=== PATIENT | female | born 1935 | race Caucasian/White ===

== ENCOUNTER → 2019-05-26 | Outpatient (CLI) | payer MEDICARE ==
[2019-05-26 20:32] LABS: MUCOUS Present /lpf; PH 6 (5-8); SQUAMOUS EPITHELIAL 0-2 /hpf; URINE APPEARANCE Clear; URINE BACTERIA Rare /hpf; URINE BILIRUBIN Negative (NEGATIVE); URINE BLOOD Negative (NEGATIVE); URINE COLOR Straw; URINE GLUCOSE Negative (NEGATIVE); URINE KETONE Negative (NEGATIVE); URINE LEUKOCYTE ESTERASE 1+ (NEGATIVE); URINE NITRATE Negative (NEGATIVE); URINE PROTEIN(semi-quant) Negative (NEGATIVE); URINE RBC 0-2 /hpf; URINE UROBILINOGEN Negative (NEGATIVE)
[2019-05-26 20:50] LABS: COLLECTION METHOD CLEAN CATCH
== END ==
LOC: ZCOL.LAB 15:31
PROVIDERS: Family Medicine
DX: R35.0 Frequency of micturition (principal)

== ENCOUNTER 2019-08-05 07:41 | Inpatient (IN) | payer MEDICARE, BC ==
[~2019-08-05] VITALS: Ht 154.9 cm; Wt 54.2 kg
[2019-08-05 08:11] LABS: HEMOGLOBIN 11.8 g/dl (12.5-16.0); MEAN CELL VOLUME 91 fl (80.0-100.0); MEAN CORPUSCULAR HEMOGLOBIN 30 pg (27.0-31.0); MEAN CORPUSCULAR HGB CONC 33 g/dl (33.0-37.0); MEAN PLATELET VOLUME 9.9 fl (7.4-10.4); PLATELET COUNT 295 K/mm3 (130-400); RED BLOOD COUNT 3.93 M/mm3 (4.10-5.30)
[2019-08-05 08:14] LABS: HEMATOCRIT 35.8 % (37.0-47.0)
[2019-08-05 08:22] LABS: ALANINE AMINOTRANSFERASE 23 U/L (9-52); ALBUMIN 3.9 gm/dL (3.5-5.0); ALKALINE PHOSPHATASE 54 U/L (50-136); ANION GAP 10 mmol/L (7-16); AST,SGOT 20 U/L (15-37); BILIRUBIN,TOTAL 0.5 mg/dL (0.0-1.0); BLOOD UREA NITROGEN 30 mg/dL (7-17); CALCIUM 9.4 mg/dL (8.4-10.2); CARBON DIOXIDE 27 mmol/L (22-30); CHLORIDE 103 mmol/L (98-107); CREATININE, serum 0.96 (0.52-1.25); GLUCOSE 142 mg/dL (74-106); LIPASE 27 U/L (23-300); POTASSIUM 4.4 mmol/L (3.4-5.0); SODIUM 139 mmol/L (137-145); TOTAL PROTEIN 6.5 gm/dL (6.4-8.2)
[2019-08-05 08:24] LABS: C-REACTIVE PROTEIN < 0.5 mg/dL (0.0-0.9)
[2019-08-05] MEDS ORDERED: MELATIN 3 MG-11 TAB PO (08:31)
[2019-08-05] MEDS ORDERED: ATIVAN 0.50.5 MG/TAB PO (08:32)
[2019-08-05] MEDS ORDERED: PREVIDENT5000PLUS DT (08:34)
[2019-08-05] MEDS ORDERED: ZOFRAN ODT4 MG PO (08:36)
[2019-08-05] MEDS ORDERED: LIPITOR 80MG80 MG PO (08:36)
[2019-08-05] MEDS ORDERED: MULTI VITAMINS1 TAB PO (08:37)
[2019-08-05] MEDS ORDERED: ATIVAN 1MG T1 MG/TAB PO (08:37)
[2019-08-05] MEDS ORDERED: LAMICTAL 25MG T25 MG PO (08:38)
[2019-08-05 09:04] LABS: BAND 4 % (0-10); LYMPHOCYTE 13 % (20.0-51.0); NEUTROPHILS 76 % (42.0-75.2); PLATELET ESTIMATE NORMAL (NORMAL)
[2019-08-05 09:40] LABS: COLLECTION METHOD CLEAN CATCH
[2019-08-05 09:55] LABS: MUCOUS Present /lpf; PH 5 (5-8); SQUAMOUS EPITHELIAL 0-2 /hpf; URINE APPEARANCE Clear; URINE BACTERIA None Seen /hpf; URINE BILIRUBIN Negative (NEGATIVE); URINE BLOOD Negative (NEGATIVE); URINE COLOR Yellow; URINE GLUCOSE Negative (NEGATIVE); URINE KETONE Negative (NEGATIVE); URINE LEUKOCYTE ESTERASE Negative (NEGATIVE); URINE NITRATE Negative (NEGATIVE); URINE PROTEIN(semi-quant) Negative (NEGATIVE); URINE RBC 0-2 /hpf; URINE UROBILINOGEN Negative (NEGATIVE)
[2019-08-05 10:38] LABS: IRON,SERUM 147 ug/dL (35-150)
[2019-08-05 10:47] LABS: TOTAL IRON BINDING CAPACITY 287 ug/dL (265-497)
[2019-08-05 14:50] LABS: HEMOGLOBIN 9.1 g/dl (12.5-16.0)
[2019-08-05 14:51] LABS: HEMATOCRIT 27.5 % (37.0-47.0)
[2019-08-05 16:02] VITALS: BP 102/90; PULSE 83; TEMP 99.2
[2019-08-05 16:06] VITALS: BP 102/90; PULSE 83; TEMP 99.2
--- NOTE | 2019-08-05 18:35 | NUR ---
Pt resting in the room, recieved to the floor from [facility] this afternoon, initial assessments complete.
--- NOTE | 2019-08-05 19:40 | NUR ---
Patient assessed at this time. Alert and oriented x 4, and able to make needs known. Complaining of upset stomach and nausea. Given medication as scheduled. Peripheral IV to right AC. LR running per orders. Site is without redness, warmth, swelling, and pain. Denies SOB and dyspnea. LS CTA. Respirations even and unlabored. HRR. Capillary refill less than 3 secons. Non-tenting skin turgor. BSAx4. No edema. Resting in bed with call light within reach.
[2019-08-05 20:22] LABS: HEMATOCRIT 26.4 % (37.0-47.0); HEMOGLOBIN 8.7 g/dl (12.5-16.0)
[2019-08-05 21:01] VITALS: BP 120/34; PULSE 87; TEMP 99.1
[2019-08-05 23:36] VITALS: BP 120/42; PULSE 73; TEMP 98
--- NOTE | 2019-08-06 02:29 | NUR ---
Patient complaining of nausea/upset stomach. Spoke with Janelel, new order for Zofran 4 mg IV q6H PRN. Order updated.
[2019-08-06 04:15] VITALS: BP 121/35; PULSE 84; TEMP 98.7
--- NOTE | 2019-08-06 04:54 | NUR ---
No further complaints of nausea or upset stomach since given PRN Zofran per oders. Resting in bed with call light within reach.
[2019-08-06 06:43] LABS: BASO % 0.5 % (0.0-2.0); EOS # 0.1 (0.0-0.7); EOS % 1.6 % (0-4.0); GRAN # 3.8 (1.4-6.5); GRAN % 64.6 % (42.2-75.2); LYMPH # 1.4 (1.2-3.4); MEAN CELL VOLUME 92 fl (80.0-100.0); MEAN CORPUSCULAR HGB CONC 33 g/dl (33.0-37.0); MEAN PLATELET VOLUME 9.7 fl (7.4-10.4); MONO # 0.5 (0.1-0.6); MONO % 8.8 % (1.7-9.3); PLATELET COUNT 244 K/mm3 (130-400); REDCELL DISTRIBUTION WIDTH-CV 12.1 % (11.5-14.5)
[2019-08-06 06:46] LABS: HEMATOCRIT 24.8 % (37.0-47.0); HEMOGLOBIN 8.2 g/dl (12.5-16.0); MEAN CORPUSCULAR HEMOGLOBIN 30 pg (27.0-31.0)
[2019-08-06 06:56] LABS: CALCIUM 8.5 mg/dL (8.4-10.2); CREATININE, serum 0.81 (0.52-1.25)
--- NOTE | 2019-08-06 07:09 | NUR ---
Report given to day shift nurse.
[2019-08-06 08:55] VITALS: BP 126/36; PULSE 89; TEMP 98.7
--- NOTE | 2019-08-06 09:37 | NUR ---
Pt in bed at this time. alert and oriented. assessment completed at this time. Pt complained of pain on the forehead left side. pt said "the pain is not a headache" warm bag provided for the pain. pt will like to eat something if allowed to. pt resting in bed at the moment.
[2019-08-06 11:44] VITALS: BP 134/53; PULSE 80; TEMP 98.8
[2019-08-06 15:27] VITALS: BP 137/55; PULSE 87; TEMP 98.1
--- NOTE | 2019-08-06 15:51 | NUR ---
NILSA met with the patient to complete initial intake. The patient lives at [facility]. The patient receives assistance for ADLs. The patient has a cane. The patient's PCP is Dr. Townsend and patient reports [facility] assists with medications. The patient has advanced directives in the EMR. well services operator will continue to follow to ensure a safe discharge.
--- NOTE | 2019-08-06 15:59 | NUR ---
Pt is concerned about dehydration after Lactated Ringer was discontinued. I inform patient to constantly sip on water. pt agreed and complied. pt walked to the bathroom. gait is steady with 1-1 assist.
--- NOTE | 2019-08-06 16:01 | NUR ---
The patient's daughter, Jayda would like to be contacted as soon a discharge plan is confirmed.
--- NOTE | 2019-08-06 18:16 | NUR ---
Pt in bed watching TV. Pt is A/O X4. Pt tried to eat few bite of her food. she was able to consume about 20%. Pt not able to consume much due to nausea. Pt complain of discomfort in her LLQ. Pt voided once on this shift Pt stated no BM for over 7 days. Pt have new order for Marilax and Colax daily.
--- NOTE | 2019-08-06 19:30 | NUR ---
Patient assessed at this time. Alert and oriented x 4, and able to make needs known. Denies having pain. IV site to right AC flushed. Site is without redness, warmth, swelling, and pain. Denies SOB and dyspnea. LS CTA upper lobes, diminished lower lobes. HRR. Telemetry: sinus. Capillary refill less than 3 seconds. Non-tenting skin turgor. Patient with poor oral intake. Encouraged fluids. Did complain of nausea. Given PRN Zofran as requested. BS hypoactive x 4. Abdomen soft and non-tender. No BM so far this shift. No edema. Assisted to the bathroom with one SBA. Urine clear and yellow. Voices no questions, needs, or concerns at this time. Resting in bed with call light within reach.
[2019-08-06 20:10] VITALS: BP 127/47; PULSE 76; TEMP 98.4
[2019-08-07] VITALS: BP 139/47; PULSE 70; TEMP 98.1
[2019-08-07 02:47] VITALS: BP 126/51; PULSE 91; TEMP 98.1
--- NOTE | 2019-08-07 03:21 | NUR ---
Patient complaining of nausea. Given PRN Zofran. Still not eating or drinking much. Given saltine crackers and encouraged fluids.
--- NOTE | 2019-08-07 05:24 | NUR ---
Patient has voiced no further complaints of pain or discomfort at this time. Resting in bed with eyes closed. Call light is within reach.
[2019-08-07 06:30] LABS: BASO # 0.1 (0.0-0.2); BASO % 0.9 % (0.0-2.0); EOS # 0.2 (0.0-0.7); EOS % 2.7 % (0-4.0); GRAN # 3.8 (1.4-6.5); GRAN % 64.4 % (42.2-75.2); LYMPH # 1.3 (1.2-3.4); LYMPH % 21.8 % (20.0-51.0); MEAN CELL VOLUME 91 fl (80.0-100.0); MEAN CORPUSCULAR HGB CONC 33 g/dl (33.0-37.0); MEAN PLATELET VOLUME 10.1 fl (7.4-10.4); MONO # 0.6 (0.1-0.6); MONO % 9.7 % (1.7-9.3); PLATELET COUNT 241 K/mm3 (130-400); RED BLOOD COUNT 2.73 M/mm3 (4.10-5.30); REDCELL DISTRIBUTION WIDTH-CV 11.9 % (11.5-14.5)
[2019-08-07 06:33] LABS: HEMATOCRIT 24.8 % (37.0-47.0); HEMOGLOBIN 8.1 g/dl (12.5-16.0); MEAN CORPUSCULAR HEMOGLOBIN 30 pg (27.0-31.0)
[2019-08-07 06:58] LABS: CALCIUM 8.5 mg/dL (8.4-10.2); CREATININE, serum 0.73 (0.52-1.25)
--- NOTE | 2019-08-07 07:20 | NUR ---
Report given to day shift nurse.
--- NOTE | 2019-08-07 07:25 | NUR ---
Seen patient awake on bed. With INT on right AC. Patient denies any pain. Patient verbalizes feeling dehydrated. Encouraged her to increase her fluid intake.
[2019-08-07 07:33] LABS: POTASSIUM 3.6 mmol/L (3.4-5.0)
[2019-08-07] MEDS ORDERED: PREVPAC PO (08:30)
[2019-08-07] MEDS ORDERED: CARAFATE S1 GM/10 ML PO (08:43)
--- NOTE | 2019-08-07 09:15 | NUR ---
Hospitalist made their rounds. Informed patient of diet progression by lunch from mechanical soft to regular diet. Encouraged patient to at least eat a bit and drink water but states she feels she will be nauseous. Zofran PRN given.
[2019-08-07] MEDS ORDERED: PREVACID 30MG30 M1 PO (09:16)
[2019-08-07] MEDS ORDERED: MIRALAX510G PO (09:30)
[2019-08-07 11:07] VITALS: BP 101/82; PULSE 84; TEMP 98.5
--- NOTE | 2019-08-07 11:30 | NUR ---
Patient's daughter Kendra verbalized that she thinks the patient fell last Saturday when she was still in [facility] and noted to have a small bump on the left upper eyebrow. Informed Dr. Correa and was aware about that.
[2019-08-07 15:32] VITALS: BP 108/50; PULSE 87; TEMP 98.7
--- NOTE | 2019-08-07 16:20 | NUR ---
INT and Tele leads removed. Patient will be discharge going to [facility] [place], accompanied by daughter.
--- NOTE | 2019-08-07 16:41 | NUR ---
Rig Builder attended clinical rounds with the team and patient to discharge home today pending PT/OT evaluation. SW to continue to follow.
--- NOTE | 2019-08-07 16:42 | NUR ---
Repair Table Operator met with patient and patient's daughter about PT/OT's recommendation for discharge back to Assisted Living with Home Health for PT/OT. NILSA contacted Srinivas at [facility] who advised they could provide PT/OT under patient's Medicare Part B. NILSA provided this update to patient and patient's daughter who are in agreeance with discharge plan. Patient's daughter to provide transportation to [facility]. NILSA faxed discharge orders to [facility]. No additional concerns at this time.
--- NOTE | 2019-08-07 16:51 | NUR ---
Discharge summary and instructions given to patient.
--- NOTE | 2019-08-07 17:15 | NUR ---
Assisted patient for discharge via wheelchair. Daughter will accompany the patient via their private car. Patient is stable, denies any pain. No nausea or vomiting.
== END 2019-08-07 17:15 | disposition home or self-care (01) | DRG 369 ==
LOC: COL.ER 07:41 → MEDICAL 09:09
PROVIDERS: Family Medicine; Internal Medicine Gastroenterology; Physician Assistant; ADMIT Student in an Organized Health Care Education/Training Program
PROC: 0W3P8ZZ Control Bleeding in Gastrointestinal Tract, Via Natural or Artificial Opening Endoscopic (ICD-10-PCS; principal; 2019-08-05 10:30)
DX: K22.6 Gastro-esophageal laceration-hemorrhage syndrome (principal); D62 Acute posthemorrhagic anemia; E78.5 Hyperlipidemia, unspecified; F31.9 Bipolar disorder, unspecified; F41.9 Anxiety disorder, unspecified; K59.00 Constipation, unspecified; K29.70 Gastritis, unspecified, without bleeding; Z96.651 Presence of right artificial knee joint; R00.0 Tachycardia, unspecified; Z90.710 Acquired absence of both cervix and uterus; Z90.49 Acquired absence of other specified parts of digestive tract; Z95.820 Peripheral vascular angioplasty status with implants and grafts
CPT/HCPCS: 99222-AI; 99231-AI; 99239; C9113; J0171; J2250; J2405; J3010; J7030; J7120

== ENCOUNTER → 2019-08-28 | Outpatient (CLI) | payer MEDICARE, BC ==
[~2019-08-28] MED LIST: ATIVAN 0.50.5 MG/TAB PO; ATIVAN 1MG T1 MG/TAB PO; CARAFATE S1 GM/10 ML PO; LAMICTAL 25MG T25 MG PO; LIPITOR 80MG80 MG PO; MELATIN 3 MG-11 TAB PO; MIRALAX510G PO; MULTI VITAMINS1 TAB PO; PREVACID 30MG30 M1 PO; PREVIDENT5000PLUS DT; PREVPAC PO; ZOFRAN ODT4 MG PO
[2019-08-28 10:38] LABS: BASO # 0.1 (0.0-0.2); BASO % 1.3 % (0.0-2.0); EOS # 0.2 (0.0-0.7); GRAN # 2.5 (1.4-6.5); GRAN % 54.3 % (42.2-75.2); HEMOGLOBIN 10.6 g/dl (12.5-16.0); LYMPH # 1.2 (1.2-3.4); LYMPH % 25.4 % (20.0-51.0); MEAN CELL VOLUME 92 fl (80.0-100.0); MEAN CORPUSCULAR HEMOGLOBIN 29 pg (27.0-31.0); MEAN CORPUSCULAR HGB CONC 32 g/dl (33.0-37.0); MEAN PLATELET VOLUME 9.9 fl (7.4-10.4); MONO # 0.6 (0.1-0.6); MONO % 13.6 % (1.7-9.3); PLATELET COUNT 340 K/mm3 (130-400); RED BLOOD COUNT 3.63 M/mm3 (4.10-5.30); REDCELL DISTRIBUTION WIDTH-CV 12.8 % (11.5-14.5)
[2019-08-28 11:00] LABS: HEMATOCRIT 33.4 % (37.0-47.0)
== END ==
LOC: ZLAB.STJ 10:15
PROVIDERS: Family Medicine
DX: D50.0 Iron deficiency anemia secondary to blood loss (chronic) (principal)

== ENCOUNTER → 2019-09-01 | Outpatient (CLI) | payer MEDICARE, BC | LOC: BHSO 10:59 | DX: F31.81 Bipolar II disorder (principal) ==

== ENCOUNTER → 2019-10-01 | Outpatient (CLI) | payer MEDICARE, BC | LOC: BHSO 14:38 | DX: F31.81 Bipolar II disorder (principal) | CPT/HCPCS: G0463 ==

== ENCOUNTER → 2019-11-27 | Outpatient (CLI) | payer MEDICARE, BC ==
[2019-11-27 15:27] LABS: ALBUMIN 4.4 gm/dL (3.5-5.0); BILIRUBIN,TOTAL 0.3 mg/dL (0.0-1.0); CALCIUM 9.7 mg/dL (8.4-10.2); CREATININE, serum 0.79 (0.52-1.25); POTASSIUM 4.3 mmol/L (3.4-5.0); TOTAL PROTEIN 7.1 gm/dL (6.4-8.2)
[2019-11-27 15:57] LABS: BASO # 0.1 (0.0-0.2); EOS # 0.5 (0.0-0.7); EOS % 5.1 % (0-4.0); GRAN # 5.1 (1.4-6.5); GRAN % 57.8 % (42.2-75.2); HEMOGLOBIN 11.2 g/dl (12.5-16.0); LYMPH # 2.1 (1.2-3.4); MEAN CELL VOLUME 84 fl (80.0-100.0); MEAN CORPUSCULAR HEMOGLOBIN 27 pg (27.0-31.0); MEAN CORPUSCULAR HGB CONC 32 g/dl (33.0-37.0); MEAN PLATELET VOLUME 10.8 fl (7.4-10.4); MONO % 11.8 % (1.7-9.3); PLATELET COUNT 343 K/mm3 (130-400); RED BLOOD COUNT 4.22 M/mm3 (4.10-5.30); REDCELL DISTRIBUTION WIDTH-CV 14.4 % (11.5-14.5); THYROID STIMULATING HORMONE 0.049 uIU/mL (0.465-4.680)
[2019-11-27 15:59] LABS: HEMATOCRIT 35.4 % (37.0-47.0)
== END ==
LOC: ZLAB.STJ 14:28
PROVIDERS: Family Medicine
DX: E03.4 Atrophy of thyroid (acquired) (principal); I10 Essential (primary) hypertension; K92.2 Gastrointestinal hemorrhage, unspecified

== ENCOUNTER 2019-12-09 00:52 | Emergency (ER) | payer MEDICARE, BC ==
[~2019-12-09] VITALS: Ht 172.7 cm; Wt 65.9 kg
[2019-12-09 01:00] VITALS: TEMP 97.9
[2019-12-09 01:19] LABS: BASO # 0.1 (0.0-0.2); BASO % 0.5 % (0.0-2.0); EOS # 0.1 (0.0-0.7); EOS % 0.9 % (0-4.0); GRAN # 9.9 (1.4-6.5); GRAN % 84.3 % (42.2-75.2); HEMOGLOBIN 11.8 g/dl (12.5-16.0); LYMPH % 8.6 % (20.0-51.0); MEAN CELL VOLUME 82 fl (80.0-100.0); MEAN CORPUSCULAR HEMOGLOBIN 27 pg (27.0-31.0); MEAN CORPUSCULAR HGB CONC 32 g/dl (33.0-37.0); MEAN PLATELET VOLUME 9.8 fl (7.4-10.4); MONO # 0.6 (0.1-0.6); MONO % 5.3 % (1.7-9.3); PLATELET COUNT 306 K/mm3 (130-400); RED BLOOD COUNT 4.43 M/mm3 (4.10-5.30); REDCELL DISTRIBUTION WIDTH-CV 14.5 % (11.5-14.5)
[2019-12-09 01:21] LABS: HEMATOCRIT 36.4 % (37.0-47.0)
[2019-12-09 01:24] LABS: PROTHROMBIN TIME 11.5 SECONDS (9.7-12.8)
[2019-12-09 01:29] LABS: ALANINE AMINOTRANSFERASE 21 U/L (4-34); ALBUMIN 4.6 gm/dL (3.5-5.0); ALKALINE PHOSPHATASE 102 U/L (50-136); ANION GAP 11 mmol/L (7-16); AST,SGOT 29 U/L (15-37); BILIRUBIN,TOTAL 0.5 mg/dL (0.0-1.0); BLOOD UREA NITROGEN 20 mg/dL (7-17); CALCIUM 9.9 mg/dL (8.4-10.2); CARBON DIOXIDE 26 mmol/L (22-30); CHLORIDE 98 mmol/L (98-107); CREATININE, serum 0.84 (0.52-1.25); GLUCOSE 196 mg/dL (74-106); LIPASE 207 U/L (23-300); POTASSIUM 3.7 mmol/L (3.4-5.0); SODIUM 134 mmol/L (137-145); TOTAL PROTEIN 7.4 gm/dL (6.4-8.2)
[2019-12-09 01:41] LABS: TROPONIN-I < 0.012 ng/mL (0.000-0.035)
[2019-12-09 02:08] LABS: COLLECTION METHOD CLEAN CATCH
[2019-12-09 02:15] LABS: PH 7 (5-8); SQUAMOUS EPITHELIAL 0-2 /hpf; URINE APPEARANCE Clear; URINE BACTERIA None Seen /hpf; URINE BILIRUBIN Negative (NEGATIVE); URINE BLOOD Negative (NEGATIVE); URINE COLOR Straw; URINE GLUCOSE Negative (NEGATIVE); URINE KETONE Trace (NEGATIVE); URINE LEUKOCYTE ESTERASE Negative (NEGATIVE); URINE NITRATE Negative (NEGATIVE); URINE PROTEIN(semi-quant) Negative (NEGATIVE); URINE RBC 0-2 /hpf; URINE UROBILINOGEN Negative (NEGATIVE)
[2019-12-09] MEDS ORDERED: PROTONIX 40MG T40 MG PO (02:32)
[2019-12-09] MEDS ORDERED: PHENERGAN 25 TA25 MG PO (02:33)
[2019-12-09] MEDS ORDERED: ZESTORETIC 12.51 TA1 PO (02:33)
[2019-12-09] MEDS ORDERED: PRISTIQ25 MG PO (02:34)
[2019-12-09] MEDS ORDERED: SYNTHROID0.075 MG/T PO (02:35)
[2019-12-09] MEDS ORDERED: PHENERGAN25 MG RC (04:51)
[2019-12-09 05:20] VITALS: BP 136/74; PULSE 93
== END 2019-12-09 05:20 | disposition home or self-care (01) ==
LOC: COL.ER 00:52
PROVIDERS: Emergency Medicine
DX: K21.9 Gastro-esophageal reflux disease without esophagitis (principal); F31.9 Bipolar disorder, unspecified; Z90.49 Acquired absence of other specified parts of digestive tract; Z98.890 Other specified postprocedural states; Z79.899 Other long term (current) drug therapy
CPT/HCPCS: C9113; J0780; J2765; J3010; J7120

== ENCOUNTER → 2020-01-07 | Outpatient (CLI) | payer MEDICARE, BC ==
[~2020-01-07] MED LIST changes: +PHENERGAN 25 TA25 MG PO; +PHENERGAN25 MG RC; +PRISTIQ25 MG PO; +PROTONIX 40MG T40 MG PO; +SYNTHROID0.075 MG/T PO; +ZESTORETIC 12.51 TA1 PO
== END ==
LOC: COL.LAB 14:30 → ZLAB.STJ 14:30
DX: Z01.84 Encounter for antibody response examination (principal); Z20.828 Contact with and (suspected) exposure to other viral communicable diseases

== ENCOUNTER → 2020-01-08 | Outpatient (CLI) | payer MEDICARE, BC | LOC: EDSTATUS 10:25 → ZLAB.STJ 15:52 | DX: B96.81 Helicobacter pylori [H. pylori] as the cause of diseases classified elsewhere (principal) ==

== ENCOUNTER → 2020-01-21 | Outpatient (CLI) | payer MEDICARE, BC ==
[2020-01-21 11:00] LABS: ALBUMIN 3.7 gm/dL (3.5-5.0); BILIRUBIN,TOTAL 0.4 mg/dL (0.0-1.0); CALCIUM 9.5 mg/dL (8.4-10.2); CHOLESTEROL RISK RATIO 2.7; CREATININE, serum 0.91 (0.52-1.25); POTASSIUM 4.4 mmol/L (3.4-5.0); TOTAL PROTEIN 6.4 gm/dL (6.4-8.2)
== END ==
LOC: ZLAB.STJ 09:58
PROVIDERS: Family Medicine
DX: Z13.1 Encounter for screening for diabetes mellitus (principal); E78.2 Mixed hyperlipidemia

== ENCOUNTER 2021-06-30 09:24 | Day surgery (SDC) | payer MEDICARE, BC ==
[~2021-06-30] VITALS: Ht 157.5 cm; Wt 59.5 kg
[2021-06-30] MEDS ORDERED: FOSAMAX 70MG TA70 MG PO (10:30)
[2021-06-30] MEDS ORDERED: PARCOPA 25/101 UDTAB PO (10:31)
[2021-06-30] MEDS ORDERED: HCTZ12.5TAB PO (10:31)
[2021-06-30] MEDS ORDERED: PRINIVIL10 MG PO (10:32)
[2021-06-30] MEDS ORDERED: DESYREL DIVIDO150 M1 PO (10:33)
[2021-06-30] MEDS ORDERED: PRISTIQ 50 MG T50 MG PO (10:34)
[2021-06-30] MEDS ORDERED: MIRALAX PA17 GM/Dose PO (10:35)
[2021-06-30] MEDS ORDERED: ATIVAN 0.50.5 MG/TAB PO (10:35)
[2021-06-30] MEDS ORDERED: LAMICTAL 100MG100 MG PO (10:36)
[2021-06-30 10:37] VITALS: BP 118/76; PULSE 80; TEMP 99.1
[2021-06-30 11:30] VITALS: BP 117/58; PULSE 71
--- NOTE | 2021-06-30 11:30 | NUR ---
Patient returns to [address] per cart and transfers from cart to recliner with two person assist. IV fluids infusing and daughter in room. Call light in reach. Given orange juice to drink.
[2021-06-30 11:45] VITALS: BP 99/61; PULSE 77
--- NOTE | 2021-06-30 11:45 | NUR ---
Eating toast. Labs drawn as ordered.
[2021-06-30 12:00] VITALS: BP 117/58; PULSE 71
--- NOTE | 2021-06-30 12:00 | NUR ---
Dr. Corea in the room and talks with patient and daughter. All questions answered. Patient tolerated toast and juice.
[2021-06-30 12:18] LABS: HEMATOCRIT 39.2 % (37.0-47.0); HEMOGLOBIN 13.1 g/dl (12.5-16.0); MEAN CELL VOLUME 91 fl (80.0-100.0); MEAN CORPUSCULAR HEMOGLOBIN 31 pg (27.0-31.0); MEAN CORPUSCULAR HGB CONC 33 g/dl (33.0-37.0); MEAN PLATELET VOLUME 9.9 fl (7.4-10.4); PLATELET COUNT 273 K/mm3 (130-400); RED BLOOD COUNT 4.29 M/mm3 (4.10-5.30); REDCELL DISTRIBUTION WIDTH-CV 12.3 % (11.5-14.5)
[2021-06-30 12:32] LABS: ALBUMIN 4.1 gm/dL (3.4-4.8); BILIRUBIN,TOTAL 0.7 mg/dL (0.2-1.2); CALCIUM 9.1 mg/dL (8.4-10.2); CREATININE, serum 0.99 mg/dL (0.57-1.11); TOTAL PROTEIN 6.6 gm/dL (6.2-8.1)
--- NOTE | 2021-06-30 12:35 | NUR ---
IV discontinued and patient dressed. Dismissal instructions given to daughter and voices understanding of these. Patient dismissed back to assisted living driven by daughter and assisted into vehicle with instructions in hand.
[2021-06-30 12:52] LABS: THYROID STIMULATING HORMONE 0.054 uIU/mL (0.350-4.940)
== END 2021-06-30 12:35 | disposition home or self-care (01) ==
LOC: SDCO 09:24
PROVIDERS: Internal Medicine Gastroenterology
DX: K29.51 Unspecified chronic gastritis with bleeding (principal); K21.9 Gastro-esophageal reflux disease without esophagitis; I10 Essential (primary) hypertension; M19.90 Unspecified osteoarthritis, unspecified site; E03.9 Hypothyroidism, unspecified; E78.5 Hyperlipidemia, unspecified; F33.9 Major depressive disorder, recurrent, unspecified; F41.9 Anxiety disorder, unspecified; Z79.899 Other long term (current) drug therapy; Z79.890 Hormone replacement therapy
CPT/HCPCS: J2704; J7030

== ENCOUNTER 2021-08-13 10:24 | Emergency (ER) | payer MEDICARE, BC ==
[~2021-08-13] VITALS: Ht 157.5 cm; Wt 59.1 kg
[~2021-08-13 10:24] MED LIST changes: +DESYREL DIVIDO150 M1 PO; +FOSAMAX 70MG TA70 MG PO; +HCTZ12.5TAB PO; +LAMICTAL 100MG100 MG PO; +MIRALAX PA17 GM/Dose PO; +PARCOPA 25/101 UDTAB PO; +PRINIVIL10 MG PO; +PRISTIQ 50 MG T50 MG PO
[2021-08-13 11:26] VITALS: TEMP 98.6
[2021-08-13 13:12] VITALS: BP 171/74; PULSE 87
== END 2021-08-13 13:12 | disposition home or self-care (01) ==
LOC: COL.ER 10:24
DX: S60.211A Contusion of right wrist, initial encounter (principal); W18.30XA Fall on same level, unspecified, initial encounter; Y92.009 Unspecified place in unspecified non-institutional (private) residence as the place of occurrence of the external cause; Y99.0 Civilian activity done for income or pay

== ENCOUNTER → 2021-09-04 | Outpatient (CLI) | payer MEDICARE, BC ==
[2021-09-04 17:32] LABS: COLLECTION METHOD CLEAN CATCH
[2021-09-04 17:43] LABS: MUCOUS Present (NOT PRESENT); PH 5 (5-8); SQUAMOUS EPITHELIAL 0-2 /hpf (0-10); URINE APPEARANCE Hazy (CLEAR/HAZY); URINE BACTERIA None Seen /hpf (NONE SEEN); URINE BILIRUBIN Negative (NEGATIVE); URINE BLOOD Negative (NEGATIVE); URINE COLOR Yellow (YELLOW); URINE GLUCOSE Negative (NEGATIVE); URINE KETONE Negative (NEGATIVE); URINE LEUKOCYTE ESTERASE 1+ (NEGATIVE); URINE NITRATE Negative (NEGATIVE); URINE PROTEIN(semi-quant) Negative (NEGATIVE); URINE RBC 0-2 /hpf (0-2); URINE UROBILINOGEN Negative (NEGATIVE)
== END ==
LOC: ZCOL.LAB 16:27
DX: R45.6 Violent behavior (principal)

== ENCOUNTER 2024-05-12 10:47 | Outpatient (CLI) | payer MEDICARE, BC ==
[~2024-05-12] VITALS: Ht 157.5 cm; Wt 66.7 kg
[~2024-05-12 10:47] MED LIST changes: +MAG-AL PLUS 3030 ML PO; +NATURAL IRON65 MG; +NYAMYC100000 U/G TP; +QUALITY CHOICE125 MG PO; +REMERON 15M15 MG/TA1 PO; +RISPERDAL 0.20.25 MG PO; +SALONPAS1 EACH TP; +TYLENOL 8 HR PO; +VOLTAREN GEL 1%1 TU TP
[2024-05-12 10:58] VITALS: BP 131/74; PULSE 76; TEMP 98.5
[2024-05-12] MEDS ORDERED: Denosumab 60 MG/ML SYRINGE SQ ONE (11:15)
--- NOTE | 2024-05-12 11:37 | NUR ---
PT TOLERATED INITIAL INJECTION WELL. VS REMAINED WITHIN NORMAL LIMITS. PT WAS ASSISTED TO MAIN LOBBY BY THIS RN UPON DISCHARGE. PT WAS OBSERVED FOR 20 MINUTES FOLLOWING INJECTION AND REMAINED FREE FROMS SIGNS OF ADVERSE REACTION. PT FREE FROM CONCERNS AND COMPLAINTS UPON DISCHARGE. [facility] CALLED FOR TRANSPORT.
== END 2024-05-12 11:38 | disposition home or self-care (01) ==
LOC: EUO 10:47
DX: M81.0 Age-related osteoporosis without current pathological fracture (principal)
CPT/HCPCS: J0897